=== PATIENT | male | born 1985 | race African-American/Black ===

== ENCOUNTER 2018-10-21 19:36 | Emergency (ER) | payer MEDICAID ==
[~2018-10-21] VITALS: Ht 172.7 cm; Wt 120.0 kg
[2018-10-21 20:48] VITALS: BP 129/80
== END 2018-10-21 21:14 | disposition home or self-care (01) ==
LOC: ER 19:36
DX: K08.89 Other specified disorders of teeth and supporting structures (principal); F12.10 Cannabis abuse, uncomplicated; Z88.0 Allergy status to penicillin; Z88.1 Allergy status to other antibiotic agents
CPT/HCPCS: 99283

== ENCOUNTER 2020-07-13 16:04 | Emergency (ER) | payer MEDICAID ==
[~2020-07-13] VITALS: Ht 175.3 cm; Wt 120.0 kg
[2020-07-13] MEDS ORDERED: AZIT250T12 MT (17:00)
[2020-07-13] MEDS ORDERED: DEX4 MT (17:00)
[2020-07-13 17:15] VITALS: BP 100/70
== END 2020-07-13 17:23 | disposition home or self-care (01) ==
LOC: ER 16:04
DX: U07.1 COVID-19 (principal); R03.0 Elevated blood-pressure reading, without diagnosis of hypertension; F12.90 Cannabis use, unspecified, uncomplicated
CPT/HCPCS: 93005; 99283; C9803; U0003

== ENCOUNTER 2020-07-15 20:10 | Emergency (ER) | payer MEDICAID ==
[~2020-07-15 20:10] MED LIST: AZIT250T12 MT; DEX4 MT
== END 2020-07-15 20:14 | disposition left against medical advice (07) ==
LOC: ER 20:10
DX: R05 Cough (principal); Z53.21 Procedure and treatment not carried out due to patient leaving prior to being seen by health care provider